=== PATIENT | male | born 1940 | race Asian ===

== ENCOUNTER 2022-11-30 05:50 | Emergency (ER) | payer OTHER ==
[~2022-11-30] VITALS: Ht 172.7 cm; Wt 78.0 kg
[2022-11-30 05:55] VITALS: BP_SYST 161
--- NOTE | 2022-11-30 05:55 | NUR ---
Triaged patient and placed in ER bed 6 for evaluation. Bed placed in lowest position with side rails up. Friend at bedside. Instructed to notify ED staff for any changes in condition or worsening of symptoms while waiting to be seen by a provider. Patient verbalized understanding.
--- NOTE | 2022-11-30 06:10 | NUR ---
Patient is awake and alert to self, date, time and current president. Pt c/o of left upper arm, shoulder and left side back pain. NAD.
--- NOTE | 2022-11-30 06:13 | NUR ---
ER Dr. Man at bedside examining patient.
[2022-11-30] MEDS ORDERED: IBUPROFEN 600 MG TABLET PO ONE (06:15)
[2022-11-30] MEDS ORDERED: predniSONE 20 MG TABLET PO ONE (06:15)
[2022-11-30] MEDS ORDERED: IBUP-1969 PO (07:00)
[2022-11-30 07:13] VITALS: BP_SYST 168
--- NOTE | 2022-11-30 07:13 | NUR ---
Patient given written and verbal discharge instructions and verbalizes understanding. ER MD discussed with patient the results and treatment provided. Patient in stable condition. ID arm band removed. Rx of Ibuprofen given. Patient educated on pain management and to follow up with PMD. Pain Scale 8/10. MD made aware of pain, suggested other pain meds but MD said no need. Sling on affected arm insted. Opportunity for questions provided and answered. Medication side effect fact sheet provided.
== END 2022-11-30 07:13 | disposition home or self-care (01) ==
LOC: SED 05:50
DX: M25.512 Pain in left shoulder (principal); I10 Essential (primary) hypertension; Z88.2 Allergy status to sulfonamides; Z79.899 Other long term (current) drug therapy
CPT/HCPCS: 99283; 73030; J7512

== ENCOUNTER 2022-12-03 09:52 | Inpatient (IN) | payer OTHER ==
[~2022-12-03] VITALS: Ht 172.7 cm; Wt 78.5 kg
[~2022-12-03 09:52] MED LIST: IBUP-1969 PO
[2022-12-03 09:55] VITALS: BP_SYST 172
[2022-12-03 11:16] LABS: BASOPHILS % (AUTO) 0.3 % (0.0-2.0); EOSINOPHILS # (AUTO) 0.1 K/uL (0.0-0.4); HEMATOCRIT 44.6 % (36-54); HEMOGLOBIN 15.2 g/dL (14.0-18.0); MEAN CORPUSCULAR HEMOGLOBIN 31 pg (27-31); MEAN CORPUSCULAR HGB CONC 34 % (32-36); MEAN CORPUSCULAR VOLUME 91 fL (79.0-98.0); MONOCYTES # (AUTO) 0.8 K/uL (0.0-1.0); MONOCYTES % (AUTO) 8.2 % (1.7-9.3); NEUTROPHILS # (AUTO) 7.9 K/uL (1.8-7.7); NEUTROPHILS % (AUTO) 80.5 % (40.0-70.0); PLATELET COUNT (AUTO) 237 K/uL (130-430); RED BLOOD CELL COUNT(AUTO) 4.89 MIL/uL (4.2-6.2); RED CELL DISTRIBUTION WIDTH 13.8 % (9.0-15.0); WHITE BLOOD COUNT (AUTO) 9.8 K/uL (4.8-10.8)
[2022-12-03 11:19] LABS: ANION GAP 6 (5-15); CALCIUM 8.7 mg/dL (8.4-11.0); CHLORIDE 90 mmol/L (98-107); CREATININE 1.16 mg/dL (0.55-1.30); GLUCOSE 253 mg/dL (70-99); UREA NITROGEN, BLOOD 26 mg/dL (8-21)
[2022-12-03 11:20] LABS: INR 1.1 (0.80-1.20); PROTHROMBIN TIME 10.9 SECS (9.5-12.5)
[2022-12-03 11:24] LABS: ALANINE AMINOTRANSFERASE 84 U/L (12-78); ALBUMIN 3.6 g/dL (3.4-4.8); ASPARTATE AMINOTRANSFERASE 44 U/L (10-37); TOTAL BILIRUBIN 0.6 mg/dL (0.0-1.0)
[2022-12-03] MEDS ORDERED: NACL 0.9% 1,000 ML IV SCH (12:45)
[2022-12-03] MEDS ORDERED: ALBUTEROL SULFATE 0.083% 2.5 MG/3 ML VIAL.NEB INH PRN (12:45)
[2022-12-03] MEDS ORDERED: PROPOFOL DRIP 100 ML IV ONE (12:45)
[2022-12-03] MEDS ORDERED: fentaNYL CITRATE/PF 100 MCG/2 ML AMP IVP ONE (12:45)
[2022-12-03] MEDS ORDERED: ONDANSETRON HCL 4 MG/2 ML VIAL IVP PRN (12:45)
[2022-12-03] MEDS ORDERED: ACETAMINOPHEN 325 MG TABLET PO PRN ×2 (12:45→13:00)
[2022-12-03] MEDS ORDERED: CLON0.1T PO (13:55)
[2022-12-03] MEDS ORDERED: HYDR25TA4 PO (13:55)
[2022-12-03] MEDS ORDERED: LISI40TA13 PO (13:55)
[2022-12-03] MEDS ORDERED: ATEN50TA PO (13:55)
[2022-12-03] MEDS ORDERED: GLIP10TA11 PO (13:55)
[2022-12-03] MEDS ORDERED: METF-381 PO (13:55)
[2022-12-03] MEDS ORDERED: LEVO50TA8 PO (13:55)
[2022-12-03] MEDS: MORPHINE 2 MG/ML INJ. SYRINGE IVP PRN ×3 (14:13→21:27)
[2022-12-03] MEDS ORDERED: METOPROLOL SUCCINATE 25 MG TAB.SR.24H (TOPROL XL) PO ONE (14:30)
[2022-12-03 15:04] VITALS: BP_SYST 172
[2022-12-03] MEDS ORDERED: LIDOCAINE PATCH 5% 1 EA TP ONE (15:45)
[2022-12-03] MEDS ORDERED: ASPIRIN 81 MG TAB.CHEW PO ONE (16:45)
[2022-12-03] MEDS ORDERED: ASPIRIN 325 MG TABLET PO ONE (16:45)
[2022-12-03] MEDS ORDERED: hydrALAZINE HCL 20 MG/ML VIAL IVP PRN (16:45)
[2022-12-03 16:54] VITALS: BP_SYST 168
[2022-12-03] MEDS ORDERED: HEPARIN SODIUM,PORCINE 5,000 UNITS/ML VIAL SUBCUT ONE (17:00)
[2022-12-03] MEDS ORDERED: LISINOPRIL 10 MG TABLET (PRINIVIL) PO ONE (17:15)
[2022-12-03] MEDS ORDERED: MORPHINE 2 MG/ML INJ. SYRINGE IVP ONE (17:15)
[2022-12-03] MEDS ORDERED: ATORVASTATIN 20 MG TABLET PO ONE (17:15)
[2022-12-03] MEDS: NACL 0.9% 1,000 ML IV SCH (17:29)
[2022-12-03 20:30] VITALS: BP_SYST 137
[2022-12-03 23:45] VITALS: BP_SYST 139
[2022-12-04] MEDS: NACL 0.9% 1,000 ML IV SCH ×2 (01:27→09:45)
[2022-12-04 05:08] LABS: ALANINE AMINOTRANSFERASE 67 U/L (12-78); ALBUMIN 3.3 g/dL (3.4-4.8); ANION GAP 10 (5-15); ASPARTATE AMINOTRANSFERASE 34 U/L (10-37); CALCIUM 8.5 mg/dL (8.4-11.0); CHLORIDE 89 mmol/L (98-107); CREATININE 0.95 mg/dL (0.55-1.30); GLUCOSE 220 mg/dL (70-99); PHOSPHORUS 3.1 mg/dL (2.7-4.5); TOTAL BILIRUBIN 1.6 mg/dL (0.0-1.0); UREA NITROGEN, BLOOD 19 mg/dL (8-21)
[2022-12-04 06:06] LABS: BASOPHILS % (AUTO) 0.2 % (0.0-2.0); HEMATOCRIT 46.2 % (36-54); HEMOGLOBIN 15.9 g/dL (14.0-18.0); LYMPHOCYTES % (AUTO) 7.2 % (20.5-51.5); MEAN CORPUSCULAR HEMOGLOBIN 31 pg (27-31); MEAN CORPUSCULAR HGB CONC 34 % (32-36); MEAN CORPUSCULAR VOLUME 90 fL (79.0-98.0); MONOCYTES % (AUTO) 7.4 % (1.7-9.3); NEUTROPHILS % (AUTO) 85.2 % (40.0-70.0); PLATELET COUNT (AUTO) 241 K/uL (130-430); RED BLOOD CELL COUNT(AUTO) 5.12 MIL/uL (4.2-6.2); RED CELL DISTRIBUTION WIDTH 14.1 % (9.0-15.0); WHITE BLOOD COUNT (AUTO) 14.1 K/uL (4.8-10.8)
[2022-12-04] MEDS ORDERED: METOPROLOL SUCCINATE 25 MG TAB.SR.24H (TOPROL XL) PO SCH (09:00)
[2022-12-04] MEDS: METOPROLOL SUCCINATE 25 MG TAB.SR.24H (TOPROL XL) PO SCH (09:43)
[2022-12-04] MEDS: HYDROcodone/ACETAMIN 5-325 MG TAB (NORCO/ VICODIN) PO PRN (09:43)
[2022-12-04] MEDS: ASPIRIN 81 MG TAB.CHEW PO SCH (09:43)
[2022-12-04] MEDS: ATORVASTATIN 20 MG TABLET PO SCH (09:44)
[2022-12-04] MEDS: LISINOPRIL 10 MG TABLET (PRINIVIL) PO SCH (09:44)
[2022-12-04] MEDS: HEPARIN SODIUM,PORCINE 5,000 UNITS/ML VIAL SUBCUT SCH ×2 (09:47→21:19)
[2022-12-04] MEDS: LIDOCAINE PATCH 5% 1 EA TP SCH (09:47)
[2022-12-04 12:00] VITALS: BP_SYST 167
[2022-12-04] MEDS ORDERED: METO-540 PO (12:51)
[2022-12-04] MEDS ORDERED: GADOTERATE MEGLUMINE 7.5 MMOL/15 ML VIAL IV ONE (14:51)
[2022-12-04 17:16] VITALS: BP_SYST 153
[2022-12-04 20:00] VITALS: BP_SYST 168
[2022-12-05] VITALS: BP_SYST 123
[2022-12-05] MEDS ORDERED: dilTIAZem HCL IVP 5 MG/ML VIAL IVP PRN (00:15)
[2022-12-05] MEDS ORDERED: guaiFENesin ER 600 MG TAB PO SCH (01:00)
[2022-12-05] MEDS: NACL 0.9% 1,000 ML IV SCH (01:41)
[2022-12-05 04:38] VITALS: BP_SYST 168
[2022-12-05] MEDS: ASPIRIN 81 MG TAB.CHEW PO SCH (08:47)
[2022-12-05] MEDS: LISINOPRIL 10 MG TABLET (PRINIVIL) PO SCH (08:47)
[2022-12-05] MEDS: ATORVASTATIN 20 MG TABLET PO SCH (08:48)
[2022-12-05] MEDS: METOPROLOL SUCCINATE 25 MG TAB.SR.24H (TOPROL XL) PO SCH (08:48)
[2022-12-05] MEDS: HEPARIN SODIUM,PORCINE 5,000 UNITS/ML VIAL SUBCUT SCH (08:53)
[2022-12-05] MEDS: LIDOCAINE PATCH 5% 1 EA TP SCH (09:00)
[2022-12-05 11:03] VITALS: BP_SYST 159
[2022-12-05 11:33] LABS: ANION GAP 6 (5-15); CALCIUM 8.6 mg/dL (8.4-11.0); CHLORIDE 94 mmol/L (98-107); CREATININE 0.99 mg/dL (0.55-1.30); GLUCOSE 210 mg/dL (70-99); UREA NITROGEN, BLOOD 19 mg/dL (8-21)
[2022-12-05] MEDS ORDERED: GADOTERATE MEGLUMINE 7.5 MMOL/15 ML VIAL IV ONE (11:39)
[2022-12-05 11:40] LABS: ALANINE AMINOTRANSFERASE 49 U/L (12-78); ASPARTATE AMINOTRANSFERASE 35 U/L (10-37); TOTAL BILIRUBIN 1.1 mg/dL (0.0-1.0)
[2022-12-05] MEDS: HYDROcodone/ACETAMIN 5-325 MG TAB (NORCO/ VICODIN) PO PRN (11:52)
[2022-12-05 13:29] VITALS: BP_SYST 157
== END 2022-12-05 15:19 | disposition home or self-care (01) | DRG 281 ==
LOC: SED 09:52 → STU 12:41
PROVIDERS: ADMIT Student in an Organized Health Care Education/Training Program; ATTEND Student in an Organized Health Care Education/Training Program
DX: I21.4 Non-ST elevation (NSTEMI) myocardial infarction (principal); E87.1 Hypo-osmolality and hyponatremia; E87.20 Acidosis, unspecified; R65.10 Systemic inflammatory response syndrome (SIRS) of non-infectious origin without acute organ dysfunction; Z20.822 Contact with and (suspected) exposure to COVID-19; I10 Essential (primary) hypertension; E11.9 Type 2 diabetes mellitus without complications; F03.90 Unspecified dementia, unspecified severity, without behavioral disturbance, psychotic disturbance, mood disturbance, and anxiety; J06.9 Acute upper respiratory infection, unspecified; E78.5 Hyperlipidemia, unspecified; E89.0 Postprocedural hypothyroidism; Z88.2 Allergy status to sulfonamides; Z79.899 Other long term (current) drug therapy; Z90.79 Acquired absence of other genital organ(s); I16.0 Hypertensive urgency
CPT/HCPCS: 36415; 71045; 72142; 76705; 80053; 82550; 83605; 83735; 83880; 84100; 84484; 85025; 85610-TC; 85730-TC; 93005; 93306; 97110-GP; 97116-GP; 97163-GP; 97530-GP; 99285; A9575; G0378; J0360; J1644; J2270